=== PATIENT | male | born 1965 | race Caucasian/White ===

== ENCOUNTER 2019-10-16 13:31 | Outpatient (CLI) | payer OTHER, SELFPAY ==
--- NOTE | ~2019-10-16 | CT_ITS ---
EXAMINATION: CT sinus wo con DATE: 10/16/2019 15:05 INDICATION: Acute sinusitis. Congestion. TECHNIQUE: Computed tomography (CT) of the paranasal sinuses was performed without contrast. Iterativ e reconstruction technique was employed. Exam dose: 288.76 mGy-cm total exam DLP. COMPARISON: 01/13/2012 CT sinuses FINDINGS: There is rightward bowing of the nasal septum. There is prominence of the nasal turbinates, especially the right middle nasal turbinate. There is mild cristino bullosa of the left middle nasal t urbinate. There is complete opacification of the middle meatus and right ostiomeatal complex. There is mild muc operiosteal thickening of the left maxillary ostium. There is nearly complete opacification of the right maxillary sinus. There is mild mucoperiosteal thickening of the left maxillary sinus. There is patchy opacification of the ethmoid air cells bilaterally. There is mild mucoperiosteal thickening of the frontal and sphenoid sinuses. The mastoid air cells are normally developed and aerated. Middle and inner ear apparatus appear asya l bilaterally. IMPRESSION: Rightward bowing of nasal septum Complete opacification of right ostiomeatal complex and nearly complete opacification of right maxill ovidio sinus Mild mucoperiosteal thickening of the left maxillary and bilateral sphenoid and frontal sinuses Patchy opacification of ethmoid air cells bilaterally Reviewed, dictated and finalized at [facility] Reviewed, dictated and finalized at [facility] IMPRESSION: Rightward bowing of nasal septum Complete opacification of right ostiomeatal complex and nearly complete opacifi cation of right maxillary sinus Mild mucoperiosteal thickening of the left maxillary and bilateral sphenoid and frontal sinuses Patchy opacification of ethmoid air cells bilaterally
== END 2019-10-16 13:32 | disposition home or self-care (01) ==
PROVIDERS: PCP Family Medicine; Visit Provider Family Medicine
DX: J32.9 Chronic sinusitis, unspecified (principal)
CPT/HCPCS: 70486

== ENCOUNTER 2019-11-18 00:29 | Outpatient (CLI) | payer OTHER, SELFPAY ==
[2019-11-18 18:00] LABS: SARS-CoV-2 RNA PCR Negative
== END 2019-11-18 00:30 | disposition home or self-care (01) ==
LOC: ANHCOVIDDT 00:29
PROVIDERS: PCP Family Medicine; Visit Provider Otolaryngology
DX: Z01.812 Encounter for preprocedural laboratory examination (principal); Z20.828 Contact with and (suspected) exposure to other viral communicable diseases
CPT/HCPCS: 87635; C9803; U0003

== ENCOUNTER 2019-11-21 00:53 | Day surgery (SDC) | payer OTHER, SELFPAY ==
[2019-11-15 09:21] VITALS: BMI 38.6
--- NOTE | 2019-11-16 06:37 | PM.HPGS ---
History of Present Illness History of Present Illness Consent: Risks, benefits, and alternatives have been discussed and questions answered. Patient agrees to proceed with procedure. Chief complaint: Chronic Sinusitis, Nasal Septum Deviation Narrative: Mike Barrett is a 54 year old male Review of [facility] ENT: Reports nasal congestion, Reports nasal discharge, Reports nasal obstruction, Reports sinus pain and Reports sinus pressure PMFSH Social History Social History Smoking status: Former smoker Smoking end date: 06/21/12 Alcohol intake: current Meds Home Medications and Allergies Home Medications Medication Instructions Recorded Confirmed Type aspirin 81 mg tablet,delayed 81 mg PO DAILY 06/08/19 11/15/19 History release duloxetine 60 mg capsule,delayed 60 mg PO DAILY 06/08/19 11/15/19 History release sprinkle omeprazole 40 mg capsule,delayed 40 mg PO DAILY #90 cap 08/01/19 11/15/19 Rx release icosapent ethyl 1 gram capsule 2 gm PO DAILY 11/14/19 11/15/19 History qpsnysno-ylc-shudz acid 300 1 tablet PO DAILY 11/14/19 11/15/19 History mcg-lycopene 600 mcg-lutein 300 mcg tablet losartan 100 mg PO DAILY 11/15/19 11/15/19 History Allergies Allergy/AdvReac Type Severity Reaction Status Date / Time No Known Allergies Allergy Verified 11/15/19 09:22 Exam HENMT: Head: normal to inspection Ears: external ears normal, TM normal on the right and TM normal on the left General nose exam: Normal external nose present, Abnormal mucous membranes and turbinates present, Abnormal nasal septum present, Nasal discharge present and Nasal polyp present Face and sinus: face symmetric and sinus tenderness Mouth: Yes tongue normal Teeth and gingiva: gingiva normal Throat: posterior oropharynx normal Assessment and Plan Additional Plan Plan is a functional endoscopic sinus surgery
[2019-11-21] VITALS (7 sets, daily range): BP systolic 100–158; BP diastolic 61–93; PULSE 77–108; RESP 16–20; TEMP 36.6–36.8; O2SAT 93–97
--- NOTE | 2019-11-21 05:54 | WPDHPUPDATE1 ---
History and Physical Update Update Date/Time: 11/21/19 05:54 History and Physical has been reviewed, including an updated exam of the patient. There are NO changes in the patient's condition. Risks, benefits, and alternatives have been discussed and questions answered. Patient agrees to proceed with procedure.
[2019-11-21] MEDS: LACTATED RINGERS 1,000 ML 30 ML IV CONT ×2 (07:00→09:00)
--- NOTE | 2019-11-21 07:28 | P.PNAN_ITS ---
Anes - Initial Pre Proc Eval Procedure: Operation Date: 11/21/19 08:00 Proposed Procedures p Functional Endoscopic Sinus Surgery with Fusion Protocol - Juan Carlos Guevara MD s Septoplasty - Juan Carlos Guevara MD Date/Time: 11/21/19 07:28 Surgeon: Juan Carlos Guevara MD Pre Op Diagnosis: Chronic Sinusitis, Nasal Septum Deviation Patient Data Age: 54 Gender: M Height: 6 ft Weight: 129.27 kg Allergies Allergy/AdvReac Type Severity Reaction Status Date / Time No Known Allergies Allergy Verified 11/15/19 09:22 Home Medications Medication Instructions Recorded Confirmed Type aspirin 81 mg tablet,delayed 81 mg PO DAILY 06/08/19 11/15/19 History release duloxetine 60 mg capsule,delayed 60 mg PO DAILY 06/08/19 11/15/19 History release sprinkle omeprazole 40 mg capsule,delayed 40 mg PO DAILY #90 cap 08/01/19 11/15/19 Rx release icosapent ethyl 1 gram capsule 2 gm PO DAILY 11/14/19 11/15/19 History xotkvekv-enh-hhxxo acid 300 1 tablet PO DAILY 11/14/19 11/15/19 History mcg-lycopene 600 mcg-lutein 300 mcg tablet losartan 100 mg PO DAILY 11/15/19 11/15/19 History Patient hx anesthesia problems: none Family hx anesthesia problems: none [facility] Social History Social History Smoking status: Former smoker Smoking end date: 06/21/12 Alcohol intake: current Anes - Eval Final PreProcedure Day of Procedure 11/21/19 07:28 Patient weight: obese Heart: regular rate and rhythm Lungs: clear to auscultation Airway: Mallampati scale class III Neurological: alert and oriented Last oral intake: >/= 8 hours ASA classification: III Emergent: no Anesthetic plan: proceed Anesthesia type and monitoring: general ETT and standard monitoring Informed Consent: The patient's anesthetic plan and its attendant risks and benefits were discussed with the patient/family/POA. Questions were solicited and answers provided to the satisfaction of the patient/family/POA.
--- NOTE | 2019-11-21 07:47 | WPDHPUPDATE1 ---
History and Physical Update Update Date/Time: 11/21/19 07:47 a septoplasty will also be performed History and Physical has been reviewed, including an updated exam of the patient. There are NO changes in the patient's condition. Risks, benefits, and alternatives have been discussed and questions answered. Patient agrees to proceed with procedure.
--- NOTE | 2019-11-21 07:49 | WPDHPUPDATE1 ---
History and Physical Update Update Date/Time: 11/21/19 07:49 A septoplasty will also be performed History and Physical has been reviewed, including an updated exam of the patient. There are NO changes in the patient's condition. Risks, benefits, and alternatives have been discussed and questions answered. Patient agrees to proceed with procedure.
[2019-11-21] MEDS: LIDO 1%/EPINEPHRINE 1:100,000 20 ML VIAL INFILTRATE (08:04)
--- NOTE | 2019-11-21 08:57 | PM.PROC ---
Procedure Note - Detailed Date of procedure: 11/21/19 Pre-op diagnosis: Chronic Sinusitis, Nasal Septum Deviation Post-op diagnosis: same Procedure performed: FESS septoplasty Description of procedure: Patient prepped and draped in usual fashion after induction of general endotracheal anesthesia. The nose was packed with cocaine 4% impregnated cottonoids. Injected 1% xylocaine 1 to [id number] epinephrine. With the aid of the 0 degree endoscope on the right side the nose was inspected the middle turbinate was medialized and turbenectomy was done with the micro debrider the ethmoid bulla opened with microdebrider as was the basal lamella and the posterior ethmoid. The natural ostia of the maxillary sinus was opened and enlarged with microdebrider thickened mucous membrane lining was removed and then packed with a mature this procedure repeated on the other sinus with identical similar findings. Uncinectomy was done on both sides. The ethomoid bulla was opened with micro debrider thickened mucos membrane was removed. Was then packed with Surgicel. Patient awakened returned to recovery in good condition. The septum was injected with xylocaine with adrenaline a right hemitransfixion was made a left anterior and posterior tunnels elevated the bony cut bony cartilaginous junction and a right posterior elevated a strip of septal cartilage removed the maxillary crest and swung the bony and cartilaginous remnant in the midline incision closed with 4 0 chromic and Acevedo splints placed and sutured in with 2 0 silk Anesthesia: GLMA Surgeon: Juan Carlos Guevara MD Estimated blood loss (mL): 10 Drains: No Packing: Yes (Hemaderm) Pathology: none sent Complications: No immediate complications Condition: stable Disposition: PACU
--- NOTE | 2019-11-21 09:51 | SUR.PHASEII ---
[id number] spoke with daughter and updated will head this way in about 15 minutes
== END 2019-11-21 10:27 | disposition home or self-care (01) ==
PROVIDERS: PCP Family Medicine; Visit Provider Otolaryngology
PROC: (CPT 31255; principal; 2019-11-21 08:00)
PROC: (CPT 30520; 2019-11-21 08:00)
DX: J32.9 Chronic sinusitis, unspecified (principal); J34.2 Deviated nasal septum; Z79.82 Long term (current) use of aspirin; Z87.891 Personal history of nicotine dependence; E66.9 Obesity, unspecified; Z68.37 Body mass index [BMI] 37.0-37.9, adult
CPT/HCPCS: 31255; 31256; 30520; A9270; J0131; J0330; J1100; J2250; J2405; J2704; J3010; J7040; J7120